=== PATIENT | female | born 1945 | race Hispanic/Latino ===

== ENCOUNTER → 2020-10-19 | Outpatient (CLI) | payer OTHER | LOC: RAD 14:25 | PROVIDERS: ATTEND Internal Medicine | DX: R07.9 Chest pain, unspecified (principal) | CPT/HCPCS: 71101 ==

== ENCOUNTER → 2021-06-07 | Outpatient (CLI) | payer OTHER ==
[~2021-06-07] MED LIST: DIATRIZOATE MEGL/DIATRIZOA SOD 30 ML BTL PO ONE
== END ==
LOC: CT 15:52
PROVIDERS: ATTEND Internal Medicine
DX: K57.90 Diverticulosis of intestine, part unspecified, without perforation or abscess without bleeding (principal); R19.09 Other intra-abdominal and pelvic swelling, mass and lump
CPT/HCPCS: 74176

== ENCOUNTER 2021-06-17 13:39 | Inpatient (IN) | payer OTHER ==
[~2021-06-17] VITALS: Ht 160 cm; Wt 79.8 kg
[~2021-06-17 13:39] MED LIST changes: -DIATRIZOATE MEGL/DIATRIZOA SOD 30 ML BTL PO ONE; +SODIUM CHLORIDE 0.9% 1000ML 1,000 ML IV ONE
[2021-06-17] MEDS ORDERED: SODIUM CHLORIDE 0.9% 1000ML 1,000 ML IV SCH (15:00)
[2021-06-17 15:58] VITALS: BP 134/71
[2021-06-17 16:19] LABS: BASOPHILS # (AUTO) 0.1 (0.0-0.1); BASOPHILS % 0.7 % (0.0-1.0); EOSINOPHILS # (AUTO) 0.1 (0.0-0.4); HEMATOCRIT 35.9 % (34.2-44.1); HEMOGLOBIN 11.5 g/dL (12.0-16.0); LYMPHOCYTES # (AUTO) 1.9 (1.0-3.2); LYMPHOCYTES % 16.9 % (18.0-39.1); MEAN CORPUSCULAR HEMOGLOBIN 27.6 pg (28-32); MEAN CORPUSCULAR VOLUME 86.3 fL (81-99); MONOCYTES # (AUTO) 0.7 (0.2-0.8); NEUTROPHILS # (AUTO) 8.2 (2.1-6.9); NEUTROPHILS % 74.7 % (38.7-80.0); PLATELET COUNT 402 x10e3/uL (140-360); RED BLOOD COUNT 4.16 x10e6/uL (3.6-5.1); RED CELL DISTRIBUTION WIDTH 13.5 % (11.7-14.4)
[2021-06-17 16:29] LABS: INR 0.95; PARTIAL THROMBOPLASTIN TIME 32.6 seconds (23.8-35.5); PROTHROMBIN TIME 13.3 seconds (11.9-14.5)
[2021-06-17 16:39] LABS: ALBUMIN 2.9 g/dL (3.5-5.0); ALBUMIN/GLOBULIN RATIO 0.6 (0.8-2.0); ANION GAP 18.9 mmol/L (8-16); CALCIUM 8.7 mg/dL (8.4-10.2); CHOL/HDL RATIO 2.3 (3.0-3.6); CREATININE, SERUM 1.06 mg/dL (0.57-1.11); POTASSIUM 3.9 mmol/L (3.5-5.1)
[2021-06-17] MEDS ORDERED: SODIUM CHLORIDE 0.9% 1000ML 2,390 ML IV SCH (19:00)
[2021-06-17] MEDS ORDERED: SODIUM CHLORIDE 0.9% 1000ML 1,000 ML IV ONE (19:45)
[2021-06-17 19:56] VITALS: BP 134/71
[2021-06-17] MEDS ORDERED: ASPIRIN81 MG PO (20:14)
[2021-06-17] MEDS ORDERED: METFORMIN HCL850 MG PO (20:18)
[2021-06-17] MEDS ORDERED: LEVOXYL150 MCG (20:18)
[2021-06-17] MEDS ORDERED: LISINOPRIL2.5 MG PO (20:18)
[2021-06-17] MEDS ORDERED: ATORVASTATIN CA10 MG PO (20:18)
[2021-06-17] MEDS ORDERED: OMEPRAZOLE40 MG PO (20:18)
[2021-06-17] MEDS ORDERED: AMARYL2 MG PO (20:18)
[2021-06-17] MEDS: CEFEPIME 1 GM in SODIUM CHLORIDE 0.9% 50ML 50 ML IV SCH (20:53)
[2021-06-17 20:54] VITALS: BP 110/59
[2021-06-17] MEDS: METRONIDAZOLE 500MG/NS 100ML 100 ML IV SCH (21:00)
[2021-06-17] MEDS ORDERED: IOPAMIDOL 370 MG/ML 200 ML INFUS..BTL INJ ONE (21:49)
[2021-06-17] MEDS ORDERED: SODIUM CHLORIDE 0.9% 50ML 50 ML ONE (21:49)
[2021-06-17 22:00] VITALS: BP 110/59
[2021-06-18] VITALS (8 sets, daily range): BP systolic 103–127; BP diastolic 58–68
[2021-06-18] MEDS ORDERED: Morphine 4mg Syringe 4 MG/ML INJ IV PRN (01:30)
[2021-06-18] MEDS ORDERED: ALBUTEROL/IPRATROPIUM 3 ML NEB NEB PRN (01:30)
[2021-06-18] MEDS ORDERED: LIDOCAINE 4% PATCH TP PRN (01:30)
[2021-06-18] MEDS ORDERED: DIPHENHYDRAMINE HCL 25 MG CAP PO PRN (01:30)
[2021-06-18] MEDS ORDERED: MELATONIN 5 MG TABLET PO PRN (01:30)
[2021-06-18] MEDS ORDERED: DOCUSATE SODIUM 100 MG CAP PO PRN (01:30)
[2021-06-18] MEDS ORDERED: HYDROCODONE/APAP 5MG-325MG TAB PO PRN (01:30)
[2021-06-18] MEDS ORDERED: ONDANSETRON HCL INJ 2MG/ML 2ML 2 MG/ML VIAL IV PRN (01:30)
[2021-06-18] MEDS ORDERED: HYDRALAZINE HCL 20 MG/ML VIAL IV PRN (01:30)
[2021-06-18] MEDS ORDERED: POTASSIUM CHLORIDE 20 MEQ TAB CR PO PRN (01:30)
[2021-06-18] MEDS ORDERED: PHENAZOPYRIDINE HCL 100 MG TAB PO PRN (01:30)
[2021-06-18] MEDS ORDERED: ACETAMINOPHEN 325 MG TAB PO PRN (01:30)
[2021-06-18] MEDS ORDERED: DEXTROSE 50% SYRINGE 50 ML IV PRN (01:30)
[2021-06-18] MEDS ORDERED: SIMETHICONE 80 MG CHEW PO PRN (01:30)
[2021-06-18] MEDS ORDERED: BENZONATATE 100 MG CAP PO PRN (01:30)
[2021-06-18] MEDS: DEXTROSE 5%/0.9% SOD CHL 1,000 ML IV SCH ×3 (02:30→20:06)
[2021-06-18] MEDS: METRONIDAZOLE 500MG/NS 100ML 100 ML IV SCH ×3 (06:15→20:07)
[2021-06-18 06:38] LABS: BASOPHILS # (AUTO) 0.1 (0.0-0.1); BASOPHILS % 1.1 % (0.0-1.0); EOSINOPHILS # (AUTO) 0.2 (0.0-0.4); EOSINOPHILS % 2.7 % (0.0-6.0); HEMATOCRIT 31.7 % (34.2-44.1); HEMOGLOBIN 10.2 g/dL (12.0-16.0); LYMPHOCYTES # (AUTO) 1.8 (1.0-3.2); LYMPHOCYTES % 25.9 % (18.0-39.1); MEAN CORPUSCULAR HEMOGLOBIN 27.7 pg (28-32); MEAN CORPUSCULAR HGB CONC 32.2 g/dL (31-35); MEAN CORPUSCULAR VOLUME 86.1 fL (81-99); MONOCYTES # (AUTO) 0.5 (0.2-0.8); MONOCYTES % 7.2 % (4.4-11.3); NEUTROPHILS # (AUTO) 4.3 (2.1-6.9); NEUTROPHILS % 62.4 % (38.7-80.0); PLATELET COUNT 366 x10e3/uL (140-360); RED BLOOD COUNT 3.68 x10e6/uL (3.6-5.1); RED CELL DISTRIBUTION WIDTH 13.6 % (11.7-14.4)
[2021-06-18 07:03] LABS: CLARITY,URINE CLEAR (CLEAR); COLOR,URINE YELLOW (YELLOW)
[2021-06-18 07:03] LABS: ALBUMIN 2.5 g/dL (3.5-5.0); ALBUMIN/GLOBULIN RATIO 0.6 (0.8-2.0); ANION GAP 13.8 mmol/L (8-16); CALCIUM 8.1 mg/dL (8.4-10.2); CREATININE, SERUM 0.78 mg/dL (0.57-1.11); MAGNESIUM 1.6 MG/DL (1.3-2.1); PHOSPHORUS 3.2 MG/DL (2.3-4.7); POTASSIUM 3.8 mmol/L (3.5-5.1)
[2021-06-18 07:04] LABS: KETONES,URINE NEGATIVE (NEGATIVE); LEUKOCYTE ESTERASE ,URINE NEGATIVE (NEGATIVE); NITRITE,URINE NEGATIVE (NEGATIVE); PROTEIN,URINE DIPSTICK NEGATIVE (NEGATIVE); URINE UROBILINOGEN 0.2 mg/dL (0.2 - 1)
[2021-06-18 07:14] LABS: BACTERIA,URINE FEW /HPF; EPITHELIAL CELLS,URINE FEW /LPF; RBC,URINE 0-5 /HPF (0-5); TRANSITIONAL EPI CELLS,URINE FEW; WBC,URINE (MAN) 0-5 /HPF (0-5)
[2021-06-18] MEDS ORDERED: PANTOPRAZOLE SOD 40 MG TABEC PO SCH (07:30)
[2021-06-18] MEDS: CEFEPIME 1 GM in SODIUM CHLORIDE 0.9% 50ML 50 ML IV SCH ×2 (08:30→20:07)
[2021-06-18] MEDS ORDERED: METHYLPREDNISOLONE SOD SUCC 125 MG/2ML VIAL IV ONE (11:45)
[2021-06-18] MEDS ORDERED: ENOXAPARIN SOD INJ 40 MG/0.4 ML SYR SC SCH (17:00)
[2021-06-19] VITALS (8 sets, daily range): BP systolic 114–124; BP diastolic 59–77
[2021-06-19 06:26] LABS: BASOPHILS # (AUTO) 0.1 (0.0-0.1); BASOPHILS % 0.7 % (0.0-1.0); EOSINOPHILS # (AUTO) 0.1 (0.0-0.4); EOSINOPHILS % 1.4 % (0.0-6.0); HEMATOCRIT 31.5 % (34.2-44.1); HEMOGLOBIN 10.2 g/dL (12.0-16.0); LYMPHOCYTES # (AUTO) 1.5 (1.0-3.2); LYMPHOCYTES % 16.8 % (18.0-39.1); MEAN CORPUSCULAR HEMOGLOBIN 27.8 pg (28-32); MEAN CORPUSCULAR HGB CONC 32.4 g/dL (31-35); MEAN CORPUSCULAR VOLUME 85.8 fL (81-99); MONOCYTES # (AUTO) 0.5 (0.2-0.8); MONOCYTES % 6.3 % (4.4-11.3); NEUTROPHILS # (AUTO) 6.4 (2.1-6.9); NEUTROPHILS % 74.2 % (38.7-80.0); PLATELET COUNT 363 x10e3/uL (140-360); RED BLOOD COUNT 3.67 x10e6/uL (3.6-5.1); RED CELL DISTRIBUTION WIDTH 13.7 % (11.7-14.4)
[2021-06-19 06:47] LABS: BLOOD UREA NITROGEN < 5 mg/dL (7-26); CALCIUM 7.6 mg/dL (8.4-10.2); CARBON DIOXIDE 23 mmol/L (22-29); CHLORIDE 108 mmol/L (98-107); CREATININE, SERUM 0.78 mg/dL (0.57-1.11); EST GLOMERULAR FILTRATION RATE 72 ML/MIN (60-); GLUCOSE 136 mg/dL (74-118); SODIUM 138 mmol/L (136-145)
[2021-06-19 06:50] LABS: BUN/CREATININE RATIO 6 (6-25)
[2021-06-19 08:28] LABS: % IRON SATURATION 12 % (15-50); IRON 26 ug/dL (50-170); TOTAL IRON BINDING CAPACITY 221 ug/dL (261-478); TRANSFERRIN 158 mg/dL (180-382)
[2021-06-19] MEDS: CEFEPIME 1 GM in SODIUM CHLORIDE 0.9% 50ML 50 ML IV SCH ×2 (09:16→21:10)
[2021-06-19] MEDS: DEXTROSE 5%/0.9% SOD CHL 1,000 ML IV SCH (12:30)
[2021-06-19] MEDS: METRONIDAZOLE 500MG/NS 100ML 100 ML IV SCH ×2 (13:45→22:24)
[2021-06-19] MEDS ORDERED: FOLIC ACID 1 MG TAB PO ONE (21:45)
[2021-06-20] VITALS (7 sets, daily range): BP systolic 116–129; BP diastolic 66–77
[2021-06-20] MEDS ORDERED: SODIUM CHLORIDE 0.9% 250ML 250 ML ONE (05:43)
[2021-06-20] MEDS: METRONIDAZOLE 500MG/NS 100ML 100 ML IV SCH ×3 (05:45→21:28)
[2021-06-20 06:31] LABS: BASOPHILS # (AUTO) 0.1 (0.0-0.1); BASOPHILS % 0.7 % (0.0-1.0); EOSINOPHILS # (AUTO) 0.2 (0.0-0.4); EOSINOPHILS % 2.5 % (0.0-6.0); HEMATOCRIT 29.4 % (34.2-44.1); HEMOGLOBIN 9.8 g/dL (12.0-16.0); LYMPHOCYTES # (AUTO) 1.6 (1.0-3.2); LYMPHOCYTES % 22.7 % (18.0-39.1); MEAN CORPUSCULAR HEMOGLOBIN 28.5 pg (28-32); MEAN CORPUSCULAR HGB CONC 33.3 g/dL (31-35); MEAN CORPUSCULAR VOLUME 85.5 fL (81-99); MONOCYTES # (AUTO) 0.6 (0.2-0.8); MONOCYTES % 8.2 % (4.4-11.3); NEUTROPHILS # (AUTO) 4.7 (2.1-6.9); NEUTROPHILS % 65.2 % (38.7-80.0); PLATELET COUNT 288 x10e3/uL (140-360); RED BLOOD COUNT 3.44 x10e6/uL (3.6-5.1)
[2021-06-20 06:49] LABS: ANION GAP 12.7 mmol/L (8-16); BUN/CREATININE RATIO 7 (6-25); CALCIUM 8.3 mg/dL (8.4-10.2); CARBON DIOXIDE 22 mmol/L (22-29); CHLORIDE 108 mmol/L (98-107); CREATININE, SERUM 0.76 mg/dL (0.57-1.11); EST GLOMERULAR FILTRATION RATE 74 ML/MIN (60-); GLUCOSE 96 mg/dL (74-118); POTASSIUM 3.7 mmol/L (3.5-5.1); SODIUM 139 mmol/L (136-145)
[2021-06-20 07:12] LABS: BLOOD UREA NITROGEN < 5 mg/dL (7-26)
[2021-06-20] MEDS: FOLIC ACID 1 MG TAB PO SCH (09:47)
[2021-06-20] MEDS: CEFEPIME 1 GM in SODIUM CHLORIDE 0.9% 50ML 50 ML IV SCH ×2 (09:47→21:28)
[2021-06-20] MEDS ORDERED: DEXTROSE 50% SYRINGE 50 ML IV PRN (12:00)
[2021-06-20] MEDS: IRON SUCROSE 100 MG in SODIUM CHLORIDE 0.9% 100 ML 100 ML IV SCH (12:31)
[2021-06-20] MEDS: INSULIN LISPRO 100 UNIT/1 ML 3ML VIAL SQ SCH ×2 (16:30→21:28)
[2021-06-21] VITALS: BP 126/69
[2021-06-21 04:00] VITALS: BP 124/76
[2021-06-21] MEDS: METRONIDAZOLE 500MG/NS 100ML 100 ML IV SCH ×2 (04:24→14:22)
[2021-06-21 07:16] VITALS: BP 117/80
[2021-06-21] MEDS: INSULIN LISPRO 100 UNIT/1 ML 3ML VIAL SQ SCH ×3 (07:30→16:30)
[2021-06-21 08:41] VITALS: BP 117/80
[2021-06-21] MEDS: CEFEPIME 1 GM in SODIUM CHLORIDE 0.9% 50ML 50 ML IV SCH (08:43)
[2021-06-21] MEDS: FOLIC ACID 1 MG TAB PO SCH (08:43)
[2021-06-21] MEDS: IRON SUCROSE 100 MG in SODIUM CHLORIDE 0.9% 100 ML 100 ML IV SCH (09:28)
[2021-06-21 11:23] VITALS: BP 125/70
[2021-06-21] MEDS ORDERED: MEROPENEM 1 GM in SODIUM CHLORIDE 0.9% 100 ML IV ONE (11:30)
[2021-06-21 15:25] VITALS: BP 118/71
[2021-06-21] MEDS ORDERED: ONDANSETRON HCL 4 MG ORAL DISINTEGRATING TAB PO PRN (17:30)
[2021-06-21] MEDS ORDERED: METRONIDAZOLE 500 MG TAB PO SCH (22:00)
[2021-06-22] MEDS ORDERED: PANTOPRAZOLE SOD 40 MG TABEC PO SCH (07:30)
== END 2021-06-21 17:39 | disposition home or self-care (01) | DRG 758 ==
LOC: MED/SURG2 14:07 → OBSVTOIN 06-19 10:37
PROVIDERS: ADMIT Internal Medicine; ATTEND Internal Medicine
PROC: 02HV33Z Insertion of Infusion Device into Superior Vena Cava, Percutaneous Approach (ICD-10-PCS; principal; 2021-06-19)
DX: N70.03 Acute salpingitis and oophoritis (principal); K57.80 Diverticulitis of intestine, part unspecified, with perforation and abscess without bleeding; E66.01 Morbid (severe) obesity due to excess calories; Z68.31 Body mass index [BMI] 31.0-31.9, adult; E11.9 Type 2 diabetes mellitus without complications; I10 Essential (primary) hypertension; Z20.822 Contact with and (suspected) exposure to COVID-19; E03.9 Hypothyroidism, unspecified; F41.9 Anxiety disorder, unspecified; F32.A Depression, unspecified; I48.91 Unspecified atrial fibrillation; Z79.01 Long term (current) use of anticoagulants
CPT/HCPCS: 36415; 36569; 71045; 71046; 74019; 74177; 76856; 80048; 80053; 80061; 81001; 82607; 82746; 82948; 83540; 83605; 83735; 84100; 84443; 84466; 85025; 85045; 85610; 85730; 86304; 87040; 87086; 94799; G0378; J0692; J1756; J2185; J7030; J7042; J7050; Q9967; U0002

== ENCOUNTER → 2021-07-15 | Outpatient (CLI) | payer OTHER ==
[~2021-07-15] MED LIST changes: +AMARYL2 MG PO; +ASPIRIN81 MG PO; +ATORVASTATIN CA10 MG PO; +IOPAMIDOL 370 MG/ML 200 ML INFUS..BTL INJ ONE; +LEVOXYL150 MCG; +LISINOPRIL2.5 MG PO; +METFORMIN HCL850 MG PO; +OMEPRAZOLE40 MG PO; -SODIUM CHLORIDE 0.9% 1000ML 1,000 ML IV ONE; +SODIUM CHLORIDE 0.9% 50ML 50 ML ONE
== END ==
LOC: CT 16:23
PROVIDERS: ATTEND Internal Medicine Infectious Disease
DX: N70.93 Salpingitis and oophoritis, unspecified (principal)
CPT/HCPCS: 74177; Q9967

== ENCOUNTER → 2021-09-09 | Outpatient (CLI) | payer OTHER ==
[~2021-09-09] MED LIST changes: -IOPAMIDOL 370 MG/ML 200 ML INFUS..BTL INJ ONE; -SODIUM CHLORIDE 0.9% 50ML 50 ML ONE
== END ==
LOC: DX 08:54
PROVIDERS: ATTEND Surgery
DX: K57.30 Diverticulosis of large intestine without perforation or abscess without bleeding (principal)
CPT/HCPCS: 74270

== ENCOUNTER 2021-10-20 16:02 | Emergency (ER) | payer MEDICARE, OTHER ==
[~2021-10-20] VITALS: Ht 160 cm; Wt 79.8 kg
[2021-10-20] MEDS ORDERED: SODIUM CHLORIDE 0.9% 1000ML 1,500 ML IV ONE (16:45)
[2021-10-20] MEDS ORDERED: ACETAMINOPHEN 325 MG TAB PO ONE (16:45)
[2021-10-20 16:49] LABS: BASOPHILS # (AUTO) 0.1 (0.0-0.1); BASOPHILS % 0.5 % (0.0-1.0); EOSINOPHILS % 0.2 % (0.0-6.0); HEMATOCRIT 37.5 % (34.2-44.1); LYMPHOCYTES # (AUTO) 1.7 (1.0-3.2); LYMPHOCYTES % 13.9 % (18.0-39.1); MEAN CORPUSCULAR HEMOGLOBIN 28.4 pg (28-32); MEAN CORPUSCULAR VOLUME 88.9 fL (81-99); MONOCYTES % 8.4 % (4.4-11.3); NEUTROPHILS # (AUTO) 9.2 (2.1-6.9); NEUTROPHILS % 76.7 % (38.7-80.0); PLATELET COUNT 264 x10e3/uL (140-360); RED BLOOD COUNT 4.22 x10e6/uL (3.6-5.1); RED CELL DISTRIBUTION WIDTH 13.6 % (11.7-14.4)
[2021-10-20] MEDS ORDERED: IBUPROFEN 400 MG TAB PO ONE (17:00)
[2021-10-20 17:11] LABS: ALBUMIN 3.1 g/dL (3.5-5.0); ALBUMIN/GLOBULIN RATIO 0.6 (0.8-2.0); ANION GAP 18.5 mmol/L (8-16); CALCIUM 8.1 mg/dL (8.4-10.2); CREATININE, SERUM 1.1 mg/dL (0.57-1.11); POTASSIUM 4.5 mmol/L (3.5-5.1)
[2021-10-20] MEDS ORDERED: BEBTELOVIMAB 175 MG INJ IV ONE (18:00)
[2021-10-20 18:25] LABS: CLARITY,URINE SL CLOUDY (CLEAR); COLOR,URINE AMBER (YELLOW); KETONES,URINE 1+ (NEGATIVE); LEUKOCYTE ESTERASE ,URINE SMALL (NEGATIVE); NITRITE,URINE POSITIVE (NEGATIVE); PROTEIN,URINE DIPSTICK 1+ (NEGATIVE); URINE UROBILINOGEN 0.2 mg/dL (0.2 - 1)
[2021-10-20 18:36] LABS: BACTERIA,URINE MANY /HPF; EPITHELIAL CELLS,URINE RARE /LPF; RBC,URINE 0-5 /HPF (0-5)
[2021-10-20] MEDS ORDERED: CEFDINIR300 MG PO (18:44)
== END 2021-10-20 19:07 | disposition home or self-care (01) ==
LOC: ER 16:25
DX: R50.9 Fever, unspecified (principal); U07.1 COVID-19; A41.9 Sepsis, unspecified organism; E78.5 Hyperlipidemia, unspecified; E11.9 Type 2 diabetes mellitus without complications; E03.9 Hypothyroidism, unspecified; K21.9 Gastro-esophageal reflux disease without esophagitis; F41.9 Anxiety disorder, unspecified
CPT/HCPCS: 36415; 71045; 80053; 81001; 83605; 85025; 87040; 87086; 87186; 93005; 99284; J0696; J7030

== ENCOUNTER 2024-11-02 13:36 | Inpatient (IN) | payer MEDICARE, OTHER ==
[~2024-11-02] VITALS: Ht 160 cm; Wt 79.8 kg
[~2024-11-02 13:36] MED LIST changes: +CEFDINIR300 MG PO; +ONDANSETRON ODT4 MG SL
[2024-11-02 14:01] VITALS: TEMP 98.1
[2024-11-02 14:09] LABS: BASOPHILS % 0.4 % (0.0-1.0); EOSINOPHILS % 1.1 % (0.0-6.0); LYMPHOCYTES % 17.2 % (18.0-39.1); MONOCYTES % 4.7 % (4.4-11.3); NEUTROPHILS % 76.1 % (38.7-80.0); RED CELL DISTRIBUTION WIDTH 13.7 % (11.7-14.4)
[2024-11-02] MEDS: SODIUM CHLORIDE 0.9% 1000ML 1,000 ML IV STA (14:17)
[2024-11-02] MEDS: ONDANSETRON HCL INJ 2MG/ML 2ML 2 MG/ML VIAL IV PRN (14:17)
[2024-11-02 14:36] LABS: EST GLOMERULAR FILTRATION RATE 74.0 ML/MIN (>=60)
[2024-11-02] MEDS ORDERED: IOPAMIDOL 370 MG/ML 100 ML INFUS..BTL INJ ONE (14:50)
[2024-11-02 15:35] VITALS: PULSE 80; RESP 22
[2024-11-02] MEDS ORDERED: SODIUM CHLORIDE 0.9% 1000ML 1,000 ML IV SCH (16:00)
[2024-11-02] MEDS ORDERED: ONDANSETRON HCL INJ 2MG/ML 2ML 2 MG/ML VIAL IV PRN (16:00)
[2024-11-02 16:25] VITALS: BP 125/58; PULSE 74; RESP 18; TEMP 98.3; O2SAT 98; O2SAT 99
[2024-11-02] MEDS ORDERED: BENZONATATE 100 MG CAP PO PRN (16:30)
[2024-11-02] MEDS ORDERED: DOCUSATE SODIUM 100 MG CAP PO PRN (16:30)
[2024-11-02] MEDS ORDERED: HYDRALAZINE HCL 20 MG/ML VIAL IV PRN (16:30)
[2024-11-02] MEDS ORDERED: LIDOCAINE 4% PATCH TP PRN (16:30)
[2024-11-02] MEDS ORDERED: ACETAMINOPHEN 325 MG TAB PO PRN (16:30)
[2024-11-02] MEDS ORDERED: DIPHENHYDRAMINE HCL 25 MG CAP PO PRN (16:30)
[2024-11-02] MEDS ORDERED: DEXTROSE 50% SYRINGE 50 ML IV PRN ×2 (16:30→16:45)
[2024-11-02] MEDS ORDERED: MELATONIN 5 MG TABLET PO PRN (16:30)
[2024-11-02] MEDS ORDERED: ALBUTEROL/IPRATROPIUM 3 ML NEB NEB PRN (16:30)
[2024-11-02 17:15] VITALS: BP 125/58; PULSE 74; RESP 18; TEMP 98.3; O2SAT 100
[2024-11-02] MEDS: ENOXAPARIN SOD INJ 40 MG/0.4 ML SYR SC SCH (17:16)
[2024-11-02] MEDS: DEXTROSE 5%/0.9% SOD CHL 1,000 ML IV SCH (17:16)
[2024-11-02] MEDS: BISACODYL 10 MG SUPP PR ONE (17:16)
[2024-11-02] MEDS ORDERED: NEURONTIN300 MG PO (19:33)
[2024-11-02] MEDS ORDERED: MECLIZINE HCL12.5 MG PO (19:33)
[2024-11-02] MEDS ORDERED: LEVOTHYROXINE100 MC1 PO (19:33)
[2024-11-02] MEDS ORDERED: PRIMIDONE125 MG PO (19:33)
[2024-11-02] MEDS ORDERED: GEMTESA75 MG PO (19:33)
[2024-11-02] MEDS ORDERED: MACROBID 100 M100 MG PO (19:35)
[2024-11-02] MEDS ORDERED: ENULOSE10 GM/15 M PO (19:35)
[2024-11-02] MEDS ORDERED: GLIMEPIRIDE2 MG PO (19:35)
[2024-11-02 20:00] VITALS: BP 125/58; PULSE 74; RESP 18; TEMP 98.3; O2SAT 100
[2024-11-02 20:50] LABS: % IRON SATURATION 13 % (15-50)
[2024-11-02] MEDS: INSULIN LISPRO 100 UNIT/1 ML 3ML VIAL SQ SCH (21:00)
[2024-11-02] MEDS: BISACODYL 10 MG SUPP PR SCH (21:48)
[2024-11-02] MEDS: CYANOCOBALAMIN INJ 1,000 MCG/ML VIAL IM ONE (23:04)
[2024-11-03] VITALS (8 sets, daily range): BP systolic 110–140; BP diastolic 51–95; PULSE 74–90; RESP 17–20; TEMP 97.8–98.4; O2SAT 95–100
[2024-11-03 05:53] LABS: BASOPHILS % 0.7 % (0.0-1.0); EOSINOPHILS % 2.6 % (0.0-6.0); LYMPHOCYTES % 26.6 % (18.0-39.1); MONOCYTES % 7.6 % (4.4-11.3); NEUTROPHILS % 62.0 % (38.7-80.0); RED CELL DISTRIBUTION WIDTH 14.0 % (11.7-14.4)
[2024-11-03 06:22] LABS: EST GLOMERULAR FILTRATION RATE 88.0 ML/MIN (>=60)
[2024-11-03] MEDS: PANTOPRAZOLE SOD 40 MG TABEC PO SCH (07:30)
[2024-11-03] MEDS: CYANOCOBALAMIN INJ 1,000 MCG/ML VIAL IM SCH (09:46)
[2024-11-03] MEDS: IRON SUCROSE 100 MG in SODIUM CHLORIDE 0.9% 100 ML IV SCH (09:46)
[2024-11-03] MEDS: LACTULOSE SYRUP 20 GM/30 ML UDC PO SCH (16:00)
[2024-11-03] MEDS: GABAPENTIN 300 MG CAP PO SCH (16:04)
[2024-11-03] MEDS: SIMETHICONE 80 MG CHEW PO PRN (21:56)
[2024-11-03] MEDS: METOCLOPRAMIDE HCL 10 MG/2ML VIAL IV ONE (22:30)
[2024-11-03] MEDS: METOCLOPRAMIDE HCL 10 MG/2ML VIAL IV SCH (23:21)
[2024-11-04] VITALS (10 sets, daily range): BP systolic 119–140; BP diastolic 68–95; PULSE 87–117; RESP 18–20; TEMP 97.8–99.1; O2SAT 96–100
[2024-11-04 05:33] LABS: BASOPHILS % 0.2 % (0.0-1.0); EOSINOPHILS % 1.0 % (0.0-6.0); LYMPHOCYTES % 15.2 % (18.0-39.1); MONOCYTES % 6.3 % (4.4-11.3); NEUTROPHILS % 76.8 % (38.7-80.0); RED CELL DISTRIBUTION WIDTH 14.3 % (11.7-14.4)
[2024-11-04] MEDS: LEVOTHYROXINE SODIUM 50 MCG TAB PO SCH (05:39)
[2024-11-04 06:09] LABS: EST GLOMERULAR FILTRATION RATE 84.0 ML/MIN (>=60)
[2024-11-04] MEDS: PRIMIDONE 50 MG TAB PO SCH (08:35)
[2024-11-04] MEDS: LISINOPRIL 2.5 MG TAB PO SCH (08:36)
[2024-11-04] MEDS: NON-FORMULARY MEDICATION (Vibegron (Gemtesa) 75 MG) PO SCH (08:51)
[2024-11-04] MEDS: SODIUM BICARBONATE 8.4% VIAL 150 ML in DEXTROSE 5% 1,000 ML IV SCH (17:51)
[2024-11-05] VITALS (12 sets, daily range): BP systolic 107–127; BP diastolic 59–70; PULSE 66–104; RESP 16–20; TEMP 97.5–99.1; O2SAT 94–100
[2024-11-05 05:09] LABS: BASOPHILS % 0.5 % (0.0-1.0); EOSINOPHILS % 3.9 % (0.0-6.0); LYMPHOCYTES % 19.3 % (18.0-39.1); MONOCYTES % 8.8 % (4.4-11.3); NEUTROPHILS % 67.2 % (38.7-80.0); RED CELL DISTRIBUTION WIDTH 14.1 % (11.7-14.4)
[2024-11-05 05:39] LABS: EST GLOMERULAR FILTRATION RATE 83.0 ML/MIN (>=60)
[2024-11-05] MEDS ORDERED: LIDOCAINE HCL 2% LOCAL INJ 5 ML SDV VIAL INJ ONE (12:03)
[2024-11-05] MEDS ORDERED: FENTANYL CITRATE/PF 100MCG/2 ML INJ ONE (12:03)
[2024-11-05] MEDS ORDERED: ROCURONIUM BROMIDE 1 ML IV ONE (12:03)
[2024-11-05] MEDS ORDERED: PROPOFOL IV EMULSION 10 MG/ML 20 ML VIAL ONE (12:03)
[2024-11-05] MEDS ORDERED: LACTATED RINGER'S 0 ML ONE (12:06)
[2024-11-05] MEDS ORDERED: ACETAMINOPHEN 1000 MG/100 ML 100 ML IV ONE (12:27)
[2024-11-05] MEDS ORDERED: FAMOTIDINE 20 MG/2 ML VIAL IV ONE (13:05)
[2024-11-05] MEDS ORDERED: DEXAMETHASONE SOD PHOS INJ 4 MG/ML SDV ONE (13:05)
[2024-11-05] MEDS ORDERED: ONDANSETRON HCL INJ 2MG/ML 2ML 2 MG/ML VIAL ONE (13:05)
[2024-11-05] MEDS ORDERED: SUGAMMADEX SODIUM 200 MG/2 ML VIAL IV ONE (14:03)
[2024-11-05] MEDS ORDERED: KETOROLAC TROMETHAMINE 30 MG/ML VIAL IV PRN (14:45)
[2024-11-05] MEDS ORDERED: NALOXONE HCL INJ 0.4 MG/ML AMP IV PRN (14:45)
[2024-11-05] MEDS ORDERED: MORPHINE SULFATE 1 MG/ML 30ML PCA IV PRN (14:45)
[2024-11-05] MEDS ORDERED: DIPHENHYDRAMINE HCL INJ 50 MG/ML VIAL IM PRN (14:45)
[2024-11-05] MEDS ORDERED: ONDANSETRON HCL INJ 2MG/ML 2ML 2 MG/ML VIAL IV PRN (14:45)
[2024-11-05] MEDS ORDERED: ACETAMINOPHEN 1000 MG/100 ML IV PRN (14:45)
[2024-11-05] MEDS: PIPERACILLIN/TAZOBACTAM 3.375 GM VIAL ONE (15:35)
[2024-11-05] MEDS: MORPHINE SULFATE 1 MG/ML 30ML PCA ONE (16:32)
[2024-11-05] MEDS: DEXTROSE 5%/LACTATED RINGERS 1,000 ML IV SCH (18:02)
[2024-11-05] MEDS: SODIUM CHLORIDE 0.9% IRRIG 1,000 ML BTL IR SCH (18:03)
[2024-11-06] VITALS (9 sets, daily range): BP systolic 98–117; BP diastolic 51–64; PULSE 70–87; RESP 17–20; TEMP 97.5–98.2; O2SAT 98–100
[2024-11-06 05:20] LABS: BASOPHILS % 0.1 % (0.0-1.0); EOSINOPHILS % 0.0 % (0.0-6.0); LYMPHOCYTES % 7.5 % (18.0-39.1); MONOCYTES % 6.6 % (4.4-11.3); NEUTROPHILS % 85.4 % (38.7-80.0); RED CELL DISTRIBUTION WIDTH 14.3 % (11.7-14.4)
[2024-11-06 05:50] LABS: EST GLOMERULAR FILTRATION RATE 84.0 ML/MIN (>=60)
[2024-11-07] VITALS (10 sets, daily range): BP systolic 111–142; BP diastolic 62–94; PULSE 74–103; RESP 18–20; TEMP 97.4–99.8; O2SAT 93–100
[2024-11-07 07:20] LABS: RED CELL DISTRIBUTION WIDTH 14.6 % (11.7-14.4)
[2024-11-07 07:33] LABS: EST GLOMERULAR FILTRATION RATE 87.0 ML/MIN (>=60)
[2024-11-07] MEDS: CYANOCOBALAMIN INJ 1,000 MCG/ML VIAL IM ONE (22:42)
[2024-11-08] VITALS (8 sets, daily range): BP systolic 126–143; BP diastolic 54–74; PULSE 79–89; RESP 18–20; TEMP 98–98.9; O2SAT 99–100
[2024-11-08 06:46] LABS: BASOPHILS % 0.4 % (0.0-1.0); EOSINOPHILS % 3.2 % (0.0-6.0); LYMPHOCYTES % 18.1 % (18.0-39.1); MONOCYTES % 6.9 % (4.4-11.3); NEUTROPHILS % 70.9 % (38.7-80.0); RED CELL DISTRIBUTION WIDTH 14.1 % (11.7-14.4)
[2024-11-08 07:28] LABS: EST GLOMERULAR FILTRATION RATE 88 ML/MIN (>=60)
[2024-11-09] VITALS (8 sets, daily range): BP systolic 126–141; BP diastolic 66–80; PULSE 82–92; RESP 16–22; TEMP 98.1–98.5; O2SAT 82–100
[2024-11-09 08:22] LABS: BASOPHILS % 0.4 % (0.0-1.0); EOSINOPHILS % 4.0 % (0.0-6.0); LYMPHOCYTES % 15.7 % (18.0-39.1); MONOCYTES % 7.3 % (4.4-11.3); NEUTROPHILS % 71.9 % (38.7-80.0); RED CELL DISTRIBUTION WIDTH 14.2 % (11.7-14.4)
[2024-11-09 08:59] LABS: EST GLOMERULAR FILTRATION RATE 89 ML/MIN (>=60)
[2024-11-09] MEDS: POTASSIUM CHLORIDE 20 MEQ TAB CR PO PRN (10:27)
[2024-11-09] MEDS: POTASSIUM CHLORIDE 20 MEQ TAB CR PO ONE (17:41)
[2024-11-10] VITALS (10 sets, daily range): BP systolic 125–138; BP diastolic 59–80; PULSE 77–89; RESP 18–20; TEMP 97.7–98.6; O2SAT 95–100
[2024-11-10 06:14] LABS: EST GLOMERULAR FILTRATION RATE 88 ML/MIN (>=60)
[2024-11-10] MEDS: IRON-VITAMIN-MINERAL CAPSULE PO SCH (09:13)
[2024-11-10] MEDS: CYANOCOBALAMIN INJ 1,000 MCG/ML VIAL IM SCH (09:19)
[2024-11-11] VITALS (10 sets, daily range): BP systolic 100–193; BP diastolic 44–91; PULSE 80–95; RESP 18–22; TEMP 97.1–99; O2SAT 95–100
[2024-11-11] MEDS: Morphine 4mg INJECTION 4 MG/ML INJ IV PRN (22:24)
[2024-11-12] VITALS: BP 100/44; PULSE 80; RESP 18; TEMP 97.1; O2SAT 100
[2024-11-12 08:00] VITALS: BP 118/57; PULSE 71; RESP 17; TEMP 98.7; O2SAT 100
[2024-11-12 09:27] VITALS: BP 118/57; PULSE 71; RESP 17; TEMP 98.7; O2SAT 100
[2024-11-12 10:40] VITALS: PULSE 72; RESP 18; O2SAT 92
[2024-11-12 12:06] VITALS: BP 125/52; PULSE 81; RESP 19; TEMP 98.5; O2SAT 98
[2024-11-12 12:30] VITALS: BP 125/52
[2024-11-12] MEDS ORDERED: FERROUS SULFAT325 MG PO (13:14)
== END 2024-11-12 16:15 | disposition home health service (06) | DRG 330 ==
LOC: ER 13:48 → ERHOLD 15:53 → MED/SURG 17:14
PROVIDERS: ADMIT Internal Medicine; ATTEND Internal Medicine
PROC: 02HV33Z Insertion of Infusion Device into Superior Vena Cava, Percutaneous Approach (ICD-10-PCS; 2024-11-02)
PROC: 0DNN0ZZ Release Sigmoid Colon, Open Approach (ICD-10-PCS; 2024-11-05)
PROC: 0DTJ0ZZ Resection of Appendix, Open Approach (ICD-10-PCS; 2024-11-05)
PROC: 0D1N0Z4 Bypass Sigmoid Colon to Cutaneous, Open Approach (ICD-10-PCS; 2024-11-05)
PROC: 0DBN0ZZ Excision of Sigmoid Colon, Open Approach (ICD-10-PCS; principal; 2024-11-05 12:55)
DX: K56.50 Intestinal adhesions [bands], unspecified as to partial versus complete obstruction (principal); E87.20 Acidosis, unspecified; K57.20 Diverticulitis of large intestine with perforation and abscess without bleeding; E11.9 Type 2 diabetes mellitus without complications; D50.9 Iron deficiency anemia, unspecified; E03.9 Hypothyroidism, unspecified; B96.20 Unspecified Escherichia coli [E. coli] as the cause of diseases classified elsewhere; E78.5 Hyperlipidemia, unspecified; F41.9 Anxiety disorder, unspecified; F32.A Depression, unspecified; K21.9 Gastro-esophageal reflux disease without esophagitis; M54.50 Low back pain, unspecified; K59.00 Constipation, unspecified; K37 Unspecified appendicitis; R53.81 Other malaise; E66.9 Obesity, unspecified; Z68.31 Body mass index [BMI] 31.0-31.9, adult; Z79.82 Long term (current) use of aspirin; Z79.84 Long term (current) use of oral hypoglycemic drugs; Z79.890 Hormone replacement therapy; Z90.49 Acquired absence of other specified parts of digestive tract; F17.210 Nicotine dependence, cigarettes, uncomplicated; Z88.5 Allergy status to narcotic agent; Z88.8 Allergy status to other drugs, medicaments and biological substances
CPT/HCPCS: 36415; 74018; 74019; 74177; 80048; 80053; 82607; 82746; 82948; 83540; 83690; 83735; 84443; 84466; 84484; 85007; 85025; 85027; 85045; 87040; 87086; 87186; 88304; 88307; 93005; 93306; 94799; 99252; 99284; J1100; J1308; J1650; J1756; J2003; J2270; J2405; J2470; J2543; J2765; J3420; J7030; J7042; J7050; J7070; Q9967

== ENCOUNTER 2024-11-19 22:08 | Emergency (ER) | payer OTHER ==
[~2024-11-19] VITALS: Ht 160 cm; Wt 79.8 kg
[~2024-11-19 22:08] MED LIST changes: +ENULOSE10 GM/15 M PO; +FERROUS SULFAT325 MG PO; +GEMTESA75 MG PO; +GLIMEPIRIDE2 MG PO; +LEVOTHYROXINE100 MC1 PO; +MACROBID 100 M100 MG PO; +MECLIZINE HCL12.5 MG PO; +NEURONTIN300 MG PO; +PRIMIDONE125 MG PO
[2024-11-19 22:17] VITALS: PULSE 86; RESP 20; TEMP 98.5
[2024-11-19 22:53] LABS: BASOPHILS % 0.7 % (0.0-1.0); EOSINOPHILS % 4.9 % (0.0-6.0); LYMPHOCYTES % 21.9 % (18.0-39.1); MONOCYTES % 9.1 % (4.4-11.3); NEUTROPHILS % 62.9 % (38.7-80.0); RED CELL DISTRIBUTION WIDTH 14.7 % (11.7-14.4)
[2024-11-19] MEDS: SODIUM CHLORIDE 0.9% 1000ML 1,000 ML IV STA (22:57)
[2024-11-19 23:19] LABS: EST GLOMERULAR FILTRATION RATE 56.0 ML/MIN (>=60)
[2024-11-19] MEDS ORDERED: IOPAMIDOL 370 MG/ML 100 ML INFUS..BTL INJ ONE (23:44)
[2024-11-20] MEDS ORDERED: AMOX TR-K CLV1 EAC2 PO (01:31)
[2024-11-20 03:07] VITALS: BP 134/68; O2SAT 100
== END 2024-11-20 02:23 | disposition home or self-care (01) ==
LOC: ER 22:12
DX: Z48.01 Encounter for change or removal of surgical wound dressing (principal); E11.65 Type 2 diabetes mellitus with hyperglycemia; E78.5 Hyperlipidemia, unspecified; E03.9 Hypothyroidism, unspecified; K21.9 Gastro-esophageal reflux disease without esophagitis; F41.9 Anxiety disorder, unspecified; F32.A Depression, unspecified; Z93.3 Colostomy status
CPT/HCPCS: 36415; 74177; 80053; 83690; 85025; 99284; J2543; J7030; Q9967